=== PATIENT | male | born 1950 | race Caucasian/White ===

== ENCOUNTER 2016-05-30 05:56 | Outpatient (CLI) | payer BC ==
[~2016-05-30] VITALS: Ht 167.6 cm; Wt 90.7 kg
[2016-06-06] MEDS ORDERED: HYDR-3812 PO (13:24)
== END 2016-05-30 14:51 ==
LOC: PREOP 05:56
PROVIDERS: ATTEND Surgery
DX: Z01.818 Encounter for other preprocedural examination (principal); K63.9 Disease of intestine, unspecified

== ENCOUNTER 2016-06-04 06:26 | Inpatient (IN) | payer BC ==
[~2016-06-04] VITALS: Ht 167.6 cm; Wt 90.7 kg
[2016-06-04] VITALS (15 sets, daily range): BP systolic 116–152; BP diastolic 62–92
[~2016-06-04 06:26] MED LIST: BUP/EPI 0.25% 1:200,000 (MARCAINE) 30 ML VIAL ONE; HEParin (CENTRAL IV FLUSH) 500 UNIT/5 ML SYR ONE
--- OUTSIDE RECORDS SUMMARY | 2016-06-04 06:30 | XMS REPORT | Continuity of Care Document ---
Author Author [facility] Organization [facility] Address Unknown Phone Unavailable Support Name Relationship Address Phone YENI GUERRERO MD Caregiver #1 [facility] [place] [address] Insurance Providers Payer Name Policy Number Subscriber Name Relationship Yayo Angulo [facility] [id number] Lang Lei 18 Self / Same As Patient Advance Directives Directive Response Recorded Date/Time Advance Directives No 05/30/16 2:40pm Health Care Power of Athletic Agent No 05/30/16 2:40pm Resuscitation Status Full Code 05/30/16 2:40pm Problems No problem information available. Medications No medication information available. Social History Social History Problem Response Recorded Date/Time Alcohol Use Denies Use 05/30/2016 2:42pm Recreational Drug Use No 05/30/2016 2:42pm Recent Foreign Travel No 05/30/2016 2:39pm Recent Infectious Disease Exposure No 05/30/2016 2:39pm Sexually Transmitted Disease No 05/30/2016 2:42pm HIV/AIDS No 05/30/2016 2:42pm Smoking Status Never a Smoker 05/30/2016 2:41pm Recent Hopitalizations No 05/30/2016 2:42pm Sexually Transmitted Disease No 05/30/2016 2:42pm Query Response Start Date Stop Date Smoking Status Never a Smoker Hospital Discharge Instructions No hospital discharge instructions. Plan of Care Discharge Date 05/30/16 2:51pm Prescriptions See Medication Section Functional Status No functional status results. Allergies, Adverse Reactions, Alerts No known allergies. Immunizations No immunization records. Vital Signs Acute Vital Signs Vital Response Date/Time Height (Feet) 5 feet 05/30/2016 2:36pm Height (Inches) 6.00 inches 05/30/2016 2:36pm Height (Calculated Centimeters) 167.855443 cm 05/30/2016 2:36pm Weight (Pounds) 200 pounds 05/30/2016 2:36pm Weight (Ounces) 0.0 oz 05/30/2016 2:36pm Weight (Calculated Grams) 12900.48 gm 05/30/2016 2:36pm Weight (Calculated Kilograms) 90.115913 kilograms 05/30/2016 2:36pm Calculated BMI 32.3 05/30/2016 2:36pm Results No known relevant diagnostic tests, laboratory data and/or discharge summary. Procedures No known history of procedures. Encounters Encounter Location Arrival/Admit Date Discharge/Depart Date Attending Provider Departed Clinic [facility] 05/30/16 5:56am 05/30/16 2: 51pm YENI GUERRERO MD
--- OUTSIDE RECORDS SUMMARY | 2016-06-04 06:31 | XMS REPORT | Continuity of Care Document ---
Author Author [facility] Organization [facility] Address Unknown Phone Unavailable Support Name Relationship Address Phone YENI GUERRERO MD Caregiver #1 [facility] [place] [place] [address] Insurance Providers Payer Name Policy Number Subscriber Name Relationship Yayo Angulo [facility] [id number] Lang Lei 18 Self / Same As Patient Advance Directives Directive Response Recorded Date/Time Advance Directives No 05/30/16 2:40pm Health Care Power of Glass Inspector No 05/30/16 2:40pm Resuscitation Status Full Code [...] 6.00 inches 05/30/2016 2:36pm Height (Calculated Centimeters) 167.877790 cm 05/30/2016 2:36pm Weight (Pounds) 200 pounds 05/30/2016 2:36pm Weight (Ounces) 0.0 oz 05/30/2016 2:36pm Weight (Calculated Grams) 54126.48 gm 05/30/2016 2:36pm Weight (Calculated Kilograms) 90.027356 kilograms 05/30/2016 2:36pm Calculated BMI 32.3 05/30/2016 2:36pm Results No known relevant diagnostic tests, laboratory data and/or discharge summary. Procedures No known history of procedures. Encounters Encounter Location Arrival/Admit Date Discharge/Depart Date Attending Provider Departed Clinic [facility] 05/30/16 5:56am 05/30/16 2: 51pm YENI GUERRERO MD
[2016-06-04] MEDS ORDERED: metroNIDAZOLE 500 MG/100 ML IVPB (PRE-MIX) IV ONE (06:45)
[2016-06-04] MEDS ORDERED: ceFAZolin 2GM/50 ML DEXTROSE (PREMIX) IV ONE (06:45)
[2016-06-04] MEDS ORDERED: SEVOFLURANE (ULTANE) 15 ML INHAL SOLN ONE (06:46)
[2016-06-04] MEDS ORDERED: ONDANSETRON 4 MG/2 ML (SDV) Z0FRAN ONE (06:46)
[2016-06-04] MEDS ORDERED: LACTATED RINGERS 1,000 ML IV ONE ×3 (06:46→11:37)
[2016-06-04] MEDS ORDERED: ROCURONIUM 50 MG/5 ML (ZEMURON) VIAL IV ONE ×3 (06:46→10:21)
[2016-06-04] MEDS ORDERED: LACTATED RINGERS 1,000 ML IV PRN ×2 (06:46→11:53)
[2016-06-04] MEDS ORDERED: proPOfol 200 MG/20 ML (DIPRIVAN) VIAL IV ONE (06:46)
[2016-06-04] MEDS ORDERED: LIDOCAINE PF 2% 10 ML (XYLOCAINE) AMP ONE (06:46)
[2016-06-04] MEDS ORDERED: MIDAZOLAM 2 MG/2 ML (VERSED) VIAL ONE (06:46)
[2016-06-04] MEDS ORDERED: fentaNYL INJECTION 250 MCG/5 ML AMP ONE (06:46)
[2016-06-04 06:56] LABS: MEAN PLATELET VOLUME 9.5 FL (7.4-10.4); RED BLOOD COUNT 5.29 10^6/uL (4.35-5.85); WHITE BLOOD COUNT 9.1 10^3/uL (4.3-11.0)
--- OUTSIDE RECORDS SUMMARY | 2016-06-04 07:05 | XMS REPORT | Continuity of Care Document ---
Author Author [facility] Organization [facility] Address Unknown Phone Unavailable Support Name Relationship Address Phone YENI GUERRERO MD Caregiver #[address] [facility] [place] [address] Insurance Providers Payer Name Policy Number Subscriber Name Relationship Yayo Angulo [facility] [id number] Lang Lei 18 Self / Same As Patient Advance Directives Directive Response Recorded Date/Time Advance Directives No 05/30/16 2:40pm Health Care Power of Mortgage Loan Reviewer No 05/30/16 2:40pm Resuscitation Status Full Code [...] 6.00 inches 05/30/2016 2:36pm Height (Calculated Centimeters) 167.532822 cm 05/30/2016 2:36pm Weight (Pounds) 200 pounds 05/30/2016 2:36pm Weight (Ounces) 0.0 oz 05/30/2016 2:36pm Weight (Calculated Grams) 89364.48 gm 05/30/2016 2:36pm Weight (Calculated Kilograms) 90.937004 kilograms 05/30/2016 2:36pm Calculated BMI 32.3 05/30/2016 2:36pm Results No known relevant diagnostic tests, laboratory data and/or discharge summary. Procedures No known history of procedures. Encounters Encounter Location Arrival/Admit Date Discharge/Depart Date Attending Provider Departed Clinic [facility] 05/30/16 5:56am 05/30/16 2: 51pm YENI GUERRERO MD
[2016-06-04] MEDS: LACTATED RINGERS 1,000 ML IV PRN ×4 (07:08→18:31)
[2016-06-04 07:14] LABS: ALANINE AMINOTRANSFERASE 25 U/L (0-55); ALBUMIN 4.6 G/DL (3.2-4.5); ANION GAP 11 MMOL/L (5-14); ASPARTATE AMINO TRANSFERASE 24 U/L (5-34); BILIRUBIN,TOTAL 0.6 MG/DL (0.1-1.0); BLOOD UREA NITROGEN 16 MG/DL (7-18); BUN/CREATININE RATIO 14; CALCIUM 9.8 MG/DL (8.5-10.1); CARBON DIOXIDE 22 MMOL/L (21-32); CHLORIDE 106 MMOL/L (98-107); CREATININE SERUM 1.16 MG/DL (0.60-1.30); GFR ESTIMATED > 60; GLUCOSE 102 MG/DL (70-105); POTASSIUM 4.1 MMOL/L (3.6-5.0); SODIUM 139 MMOL/L (135-145)
[2016-06-04] MEDS ORDERED: LISI1TAB8 PO (07:22)
--- NOTE | 2016-06-04 07:24 | Progress Note-Pre Operative ---
Pre-Operative Progress Note H&P Reviewed The H&P was reviewed, patient examined and no changes noted. Date H&P Reviewed: Jun 04, 2016 Time H&P Reviewed: 07:23 Pre-Operative Diagnosis: Right colon mass YENI GUERRERO MD Jun 04, 2016 7:24 am
[2016-06-04] MEDS ORDERED: morphine INJ 10 MG/ML 1ML (SYR OR VIAL) ONE (11:06)
[2016-06-04] MEDS ORDERED: GLYCOPYRROLATE 0.2 MG/ML (ROBINUL) 2 ML VIAL ONE ×2 (11:25→11:45)
[2016-06-04] MEDS ORDERED: NEOSTIGMINE (BLOXIVERZ ) 1 MG/1ML 10 ML VIAL ONE (11:25)
[2016-06-04] MEDS ORDERED: ceFAZolin INJECTION 2,000 MG in NS (IVPB) 50 ML IV NR (11:29)
[2016-06-04] MEDS ORDERED: ceFAZolin 1,000 MG (ANCEF) VIAL IVP SCH (11:30)
[2016-06-04] MEDS ORDERED: fentaNYL INJECTION 100 MCG/2 ML AMP ONE (11:36)
--- NOTE | 2016-06-04 11:50 | Progress Note-Post Operative ---
Post-Operative Progess Note Pre-Operative Diagnosis Right colon mass Post-Operative Diagnosis SAME Post-Op Procedure Note Date of Procedure: Jun 04, 2016 Name of Procedure: Central line placement Robotic assisted right colon resection with intracorporeal anastomosis Estimated blood loss (mL): 50 mL Specimen(s) collected right colon YENI GUERRERO MD Jun 04, 2016 11:50 am
[2016-06-04] MEDS ORDERED: meTOprolol 5 MG/5 ML (LOPRESSOR) VIAL IV PRN (12:00)
[2016-06-04] MEDS ORDERED: ONDANSETRON 4 MG/2 ML (SDV) Z0FRAN IVP PRN ×2 (12:00→12:15)
[2016-06-04] MEDS ORDERED: HYDROmorphone (DILAUDID) 2 MG/ML VIAL IVP PRN (12:15)
[2016-06-04] MEDS ORDERED: MEPERIDINE (DEMEROL) INJ 50 MG/ML IVP PRN (12:15)
--- NOTE | 2016-06-04 12:24 | OPERATIVE REPORT ---
PROCEDURE PHYSICIAN: YENI GUERRERO DATE OF PROCEDURE: 06/04/2016 PREOPERATIVE DIAGNOSIS: Right colon mass. POSTOPERATIVE DIAGNOSIS: Right colon mass. OPERATION: 1. Central venous catheter placement. 2. Robotic assisted right colon resection with intracorporeal anastomosis. SURGEON: Case. ANESTHESIA: General anesthesia. BLOOD LOSS: 50 mL. FLUIDS: 2 liters of crystalloids. TYPE OF WOUND: Type III (contaminant wound). INDICATION FOR THE PROCEDURE: This gentleman, with a family history of colon cancer, was found to have a sessile lesion along the right colon, just distal to the cecum, requiring formal resection. He was offered minimally invasive technique with robotic assistance. Placing a central venous catheter to facilitate invasive hemodynamic monitoring and total parenteral nutrition, should his recovery be delayed, was discussed with him. Informed consent was obtained. DESCRIPTION OF PROCEDURE: He underwent mechanical bowel preparation including oral antibiotics the day before surgery. He was placed supine on the operating table and general anesthesia induced using an endotracheal tube. 2 grams of Ancef and 500 mg of Flagyl were administered intravenously as prophylaxis against wound infection. Sequential compression devices were placed around his legs, to minimize the risk of venous thrombosis. 1. CENTRAL VENOUS CATHETER PLACEMENT: Left infraclavicular fossa was prepared and draped in the usual sterile manner. Subclavian vein was localized and a floppy guidewire introduced into the heart. Subcutaneous tract was gently dilated using a silastic sheath and a triple-lumen central venous catheter advanced using Seldinger. All the channels were aspirated and flushed with heparinized saline and the catheter was secured using a silk suture. A dressing was then applied. 2. ROBOTIC ASSISTED RIGHT HEMICOLECTOMY WITH INTRACORPOREAL ANASTOMOSIS. Abdomen was prepared and draped in the usual sterile manner. A Benjamin catheter was placed to monitor urine output during the perioperative period. Pneumoperitoneum was established using a Veress needle introduced inferolateral to the umbilicus. Intra-abdominal pressure was maintained at 15 mmHg using carbon dioxide insufflation. A 12 mm trocar was placed and anatomy visualized using the 3 dimensional, high definition laparoscope associated with da James system. Ainsley ink used to jordy the lesion along the right colon was identified. Under direct view, I placed a 12 mm trocar over the left upper quadrant to facilitate using the robotic stapler followed by an 8 mm cannula over the left subcostal margin. Another 8 mm cannula was placed over the right lower quadrant and the patient was turned in slight Trendelenburg position with the right side tilted up. The robotic system was then docked. Right colon was held up and the ileocolic pedicle controlled using the vessel sealing device. Dissection was then continued in a medial to lateral fashion using the vessel sealing device. Duodenum was swept down and kept out of harm's way. The terminal ileum was then mobilized using the vessel sealer and transected using the robotic 3.5 mm stapler. We then turned our attention to the transverse colon. Omentum was using the vessel sealing device, mobilization being continued around the hepatic flexure along the para-colic gutter. The right branch of the middle colic artery was controlled using the vessel sealing device. Mid transverse colon was then transected using the robotic stapler. An anastomosis between the terminal ileum and the transverse colon was made in an isoperistaltic manner using the robotic stapling device. The common enterotomy was closed using a continuous layer of 2-0 V-Loc sutures followed by a second layer of 2-0 silk as a Lambert suture. Both ends of the bowel had excellent blood supply and there was no tension. The specimen was then removed using a 5 cm Pfannenstiel incision. The wound protecting Robin device was used to prevent contamination of the skin. Peritoneum over this incision was then closed using 3-0 Vicryl and the fascia using number 2 Prolene. Subcutaneous tissue was approximated using 3-0 Vicryl and skin using 4-0 Vicryl, in a subcuticular fashion. Skin incisions were closed using 4-0 Vicryl, in a subcuticular fashion. 0.25% Marcaine with epinephrine was infiltrated along the incisions, both preemptively and at the conclusion of the operation. He tolerated the procedure well, was extubated in the operating room and taken to the recovery room in stable condition. [place], sponges, and instruments were correct at the end of the operation. Job ID: [id number] Dictated Date: 06/04/2016 11:48:20 Button Riveter Date: 06/04/2016 12:06:47 / marino BOLTON
[2016-06-04] MEDS: morphine INJ 10 MG/ML 1ML (SYR OR VIAL) IVP PRN ×2 (12:28→12:34)
--- NOTE | 2016-06-04 13:18 | Diagnostic Imaging Report ---
INDICATION: Central line placement. FINDINGS: A portable view of the chest demonstrates cardiomegaly with tortuosity of the aorta. The left subclavian catheter has its tip in the SVC. The vascularity is slightly increased. No pleural effusions are present. IMPRESSION: 1. The central venous catheter is in good position. 2. Cardiomegaly is present with mild congestion. Dictated by: Dictated on workstation # [id number]
[2016-06-04] MEDS: metroNIDAZOLE 500MG/100ML IVPB 100 ML IV SCH ×2 (14:23→22:21)
[2016-06-04] MEDS ORDERED: ASPI-983 PO (14:50)
[2016-06-04] MEDS: fentaNYL INJECTION 100 MCG/2 ML AMP IV PRN (15:43)
[2016-06-04] MEDS: ceFAZolin INJECTION 1,000 MG in NORMAL SALINE (BAXTER MINI) 50 ML IV SCH (18:38)
[2016-06-05] VITALS (13 sets, daily range): BP systolic 114–143; BP diastolic 63–78
[2016-06-05] MEDS: fentaNYL INJECTION 100 MCG/2 ML AMP IV PRN ×5 (02:15→18:50)
[2016-06-05] MEDS: ceFAZolin INJECTION 1,000 MG in NORMAL SALINE (BAXTER MINI) 50 ML IV SCH (02:15)
[2016-06-05 04:49] LABS: BASOPHILS % (AUTO) 0 % (0-10); EOSINOPHILS % (AUTO) 0 % (0-10); LYMPHOCYTES % (AUTO) 8 % (12-44); MEAN CORPUSCULAR HEMOGLOBIN 30 PG (25-34); MEAN CORPUSCULAR HGB CONC 33 G/DL (32-36); MEAN CORPUSCULAR VOLUME 91 FL (80-99); MEAN PLATELET VOLUME 9.3 FL (7.4-10.4); MONOCYTES # (AUTO) 1.2 X 10^3 (0.0-1.0); MONOCYTES % (AUTO) 11 % (0-12); NEUTROPHILS # (AUTO) 9.5 X 10^3 (1.8-7.8); NEUTROPHILS % (AUTO) 81 % (42-75); PLATELET COUNT 184 10^3/uL (130-400); RED BLOOD COUNT 4.41 10^6/uL (4.35-5.85); RED CELL DISTRIBUTION WIDTH 13.9 % (10.0-14.5); WHITE BLOOD COUNT 11.8 10^3/uL (4.3-11.0)
[2016-06-05 05:14] LABS: ANION GAP 9 MMOL/L (5-14); BLOOD UREA NITROGEN 15 MG/DL (7-18); BUN/CREATININE RATIO 13; CALCIUM 8.8 MG/DL (8.5-10.1); CARBON DIOXIDE 24 MMOL/L (21-32); CHLORIDE 105 MMOL/L (98-107); CREATININE SERUM 1.12 MG/DL (0.60-1.30); GFR ESTIMATED > 60; GLUCOSE 108 MG/DL (70-105); MAGNESIUM 2.3 MG/DL (1.8-2.4); PHOSPHORUS 3.2 MG/DL (2.3-4.7); POTASSIUM 4.1 MMOL/L (3.6-5.0); SODIUM 138 MMOL/L (135-145)
[2016-06-05] MEDS: POTASSIUM CL 10MEQ/50ML IVPB 50 ML IV SCH (05:57)
[2016-06-05] MEDS: KCL 20 MEQ TAB (K-DUR) PO SCH (05:58)
[2016-06-05] MEDS: MAGNESIUM 1 GM/100 ML IVPB 100 ML IV SCH (05:58)
[2016-06-05] MEDS: lisINopril 20 MG (ZESTRIL) TAB PO SCH (07:55)
[2016-06-05] MEDS ORDERED: KETOROLAC 30 MG/ML VIAL IVP NR (08:15)
--- NOTE | 2016-06-05 08:40 | Diagnostic Imaging Report ---
INDICATION: Dyspnea. DISCUSSION: Single portable upright view of the chest was obtained, comparison 06/04/2016. Discoid atelectasis is now noted within the lingula. Cardiomegaly is again noted. Improved aeration of the bilateral lung bases with mild residual subsegmental atelectasis. No nithin heart failure. Left subclavian catheter with tip in the proximal SVC is stable. No pneumothorax. No pleural fluid. Mild elevation of the right hemidiaphragm is again noted. IMPRESSION: 1. Cardiomegaly without nithin failure. Dictated by: Dictated on workstation # [id number]
[2016-06-05] MEDS ORDERED: CATHETER FLUSH 10 ML SYR IV PRN (08:45)
[2016-06-05] MEDS: FLU TRIvalent (5 YOA+) 2016-17 (AFLURIA) 0.5 ML IM ONE ×2 (11:02→11:06)
--- NOTE | 2016-06-05 12:31 | Anesthesia-General Post-Op ---
General Patient Condition Mental Status/LOC: Same as Preop Cardiovascular: Satisfactory Nausea/Vomiting: Absent Respiratory: Satisfactory Pain: Controlled Complications: Absent Post Op Complications Complications None Follow Up Care/Instructions Patient Instructions None needed. Anesthesia/Patient Condition Patient Condition Patient is doing well, no complaints, stable vital signs, no apparent adverse anesthesia problems. JANIE CUELLO DO Jun 05, 2016 12:31
--- NOTE | 2016-06-05 14:00 | Progress Note-Standard ---
Standard Progress Note Progress Notes/Assess & Plan Progress/Assessment & Plan 06/05/16: Doing well.To floor Final Diagnosis R colon mass YENI GUERRERO MD Jun 05, 2016 2:00 pm
[2016-06-05] MEDS: ENOXAPARIN 40 MG/0.4 ML (LOVENOX) SYR SC SCH (14:10)
[2016-06-05] MEDS: LACTATED RINGERS 1,000 ML IV PRN (15:14)
[2016-06-05] MEDS: HYDROcodone/APAP 5 MG/325 MG (LORTAB) TAB PO PRN (21:05)
[2016-06-06] VITALS: BP 122/58
[2016-06-06] MEDS: HYDROcodone/APAP 5 MG/325 MG (LORTAB) TAB PO PRN ×3 (01:24→16:34)
[2016-06-06 04:00] VITALS: BP 118/62
[2016-06-06 05:07] LABS: BASOPHILS % (AUTO) 0 % (0-10); EOSINOPHILS # (AUTO) 0.1 10^3/uL (0.0-0.3); EOSINOPHILS % (AUTO) 1 % (0-10); LYMPHOCYTES # (AUTO) 1.6 X 10^3 (1.0-4.0); LYMPHOCYTES % (AUTO) 18 % (12-44); MEAN CORPUSCULAR HEMOGLOBIN 30 PG (25-34); MEAN CORPUSCULAR HGB CONC 33 G/DL (32-36); MEAN CORPUSCULAR VOLUME 92 FL (80-99); MEAN PLATELET VOLUME 9.5 FL (7.4-10.4); MONOCYTES % (AUTO) 11 % (0-12); NEUTROPHILS # (AUTO) 6.3 X 10^3 (1.8-7.8); NEUTROPHILS % (AUTO) 70 % (42-75); PLATELET COUNT 168 10^3/uL (130-400)
[2016-06-06 05:40] LABS: ANION GAP 9 MMOL/L (5-14); BLOOD UREA NITROGEN 13 MG/DL (7-18); BUN/CREATININE RATIO 13; CALCIUM 8.7 MG/DL (8.5-10.1); CARBON DIOXIDE 25 MMOL/L (21-32); CHLORIDE 105 MMOL/L (98-107); CREATININE SERUM 0.98 MG/DL (0.60-1.30); GFR ESTIMATED > 60; GLUCOSE 90 MG/DL (70-105); MAGNESIUM 2.1 MG/DL (1.8-2.4); PHOSPHORUS 2.3 MG/DL (2.3-4.7); POTASSIUM 3.8 MMOL/L (3.6-5.0); SODIUM 139 MMOL/L (135-145)
[2016-06-06] MEDS: POTASSIUM CL 10MEQ/50ML IVPB 50 ML IV SCH (06:00)
[2016-06-06] MEDS: MAGNESIUM 1 GM/100 ML IVPB 100 ML IV SCH (06:00)
[2016-06-06] MEDS: KCL 20 MEQ TAB (K-DUR) PO SCH (06:00)
[2016-06-06 07:00] VITALS: BP 135/77
[2016-06-06] MEDS: lisINopril 20 MG (ZESTRIL) TAB PO SCH (08:21)
--- NOTE | 2016-06-06 08:31 | Diagnostic Imaging Report ---
INDICATION: Colon mass. Portable chest at 05:01 a.m. FINDINGS: Left subclavian central line tip projects over the SVC. There is some discoid atelectasis at the left lung base. Lungs are otherwise clear. Heart size and pulmonary vascularity are normal. IMPRESSION: Stable chest with minimal residual left basilar discoid atelectasis. Dictated by: Dictated on workstation # [id number]
--- NOTE | 2016-06-06 12:28 | Progress Note-Standard ---
Standard Progress Note Progress Notes/Assess & Plan Progress/Assessment & Plan 06/05/16: Doing well.To floor 06/06/16: Seen earlier. Has passed flatus and had BMS. Incisions dry. 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
[2016-06-06] MEDS: ENOXAPARIN 40 MG/0.4 ML (LOVENOX) SYR SC SCH (12:39)
[2016-06-06 13:00] VITALS: BP 154/79
[2016-06-06] MEDS ORDERED: HYDR-3812 PO (13:24)
--- NOTE | 2016-06-06 13:25 | Discharge Inst-Simple/Standard ---
Discharge Inst-Standard Discharge Medications New, Converted or Re-Newed RX: RX on Chart Patient Instructions/Follow Up Plan of Care/Instructions/FU: pL REMOVE THE CENTRAL LINE.F/U IN 2 WEEKS Activity as Tolerated: Yes Discharge Diet: No Restrictions YENI GUERRERO MD Jun 06, 2016 1:25 pm
--- NOTE | 2016-06-07 07:24 | DISCHARGE SUMMARY ---
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 OPERATION: Robotic assisted right colon resection with intracorporeal anastomosis on 06/04/2016. This gentleman was found to have a large sessile lesion of the right colon requiring segmental resection. He underwent minimally invasive resection using robotic assistance and has made a satisfactory recovery. At the time of discharge, he is ambulating independently and his incisional pain is controlled with oral medications. He has resumed normal bowel function and is tolerating a regular diet. He will be followed up in my office in 2 weeks. I have instructed him to contact me, should there be any concerns in the meantime. Job ID: [id number] Dictated Date: 06/06/2016 13:26:53 Telephone Messenger Date: 06/07/2016 07:20:55/karen BOLTON
== END 2016-06-06 17:15 | disposition home or self-care (01) | DRG 331 ==
LOC: SURGICAL 06:26 → SDC 06:27 → SURG 06:27 → EDSTATUS 07:30 → ICU 13:05 → 4TH 06-05 08:58
PROVIDERS: ADMIT Surgery; ATTEND Surgery
PROC: 0DTF4ZZ Resection of Right Large Intestine, Percutaneous Endoscopic Approach (ICD-10-PCS; principal; 2016-06-04 07:29)
PROC: 8E0W4CZ Robotic Assisted Procedure of Trunk Region, Percutaneous Endoscopic Approach (ICD-10-PCS; 2016-06-04 07:29)
DX: D12.2 Benign neoplasm of ascending colon (principal); I10 Essential (primary) hypertension; Z80.0 Family history of malignant neoplasm of digestive organs
CPT/HCPCS: 36415; 71010; 80048; 80053; 83735; 84100; 85025; 85027; 86850; 86900; 86901; 87081; 94664; 94760

== ENCOUNTER → 2021-03-09 | Outpatient (CLI) | payer MEDICARE, OTHER ==
[~2021-03-09] MED LIST changes: +ACHD5005 PO; +ASPI-1238 PO; -BUP/EPI 0.25% 1:200,000 (MARCAINE) 30 ML VIAL ONE; -HEParin (CENTRAL IV FLUSH) 500 UNIT/5 ML SYR ONE; +LISI1TAB46 PO
== END ==
LOC: ORTHO 10:00
PROVIDERS: ATTEND Orthopaedic Surgery
DX: S83.242A Other tear of medial meniscus, current injury, left knee, initial encounter (principal); M17.12 Unilateral primary osteoarthritis, left knee; X58.XXXA Exposure to other specified factors, initial encounter
CPT/HCPCS: 99202

== ENCOUNTER → 2021-05-25 | Outpatient (CLI) | payer MEDICARE, OTHER | LOC: ORTHO 09:50 | PROVIDERS: ATTEND Orthopaedic Surgery | DX: M17.12 Unilateral primary osteoarthritis, left knee (principal) | CPT/HCPCS: 20610 ==

== ENCOUNTER → 2022-01-19 | Outpatient (CLI) | payer MEDICARE, OTHER | LOC: ORTHO 16:46 | PROVIDERS: ATTEND Orthopaedic Surgery | DX: M17.12 Unilateral primary osteoarthritis, left knee (principal) ==

== ENCOUNTER → 2022-01-23 | Outpatient (CLI) | payer MEDICARE, OTHER | LOC: ORTHO 17:12 | PROVIDERS: ATTEND Orthopaedic Surgery | DX: M17.12 Unilateral primary osteoarthritis, left knee (principal) | CPT/HCPCS: 20610 ==

== ENCOUNTER → 2022-08-22 | Outpatient (CLI) | payer MEDICARE, OTHER ==
--- NOTE | 2022-08-22 09:39 | Diagnostic Imaging Report ---
INDICATION: Right knee pain COMPARISON: None available. TECHNIQUE: Four radiographs of the right knee dated 08/22/2022. FINDINGS: No acute fracture or dislocation. No destructive osseous process. Moderate medial joint space narrowing and mild lateral joint space narrowing. Mild tricompartmental osteophytosis. The tibia is slightly laterally positioned in relationship to the distal femur. Narrowing of the lateral patellofemoral joint space. Small knee joint effusion. No suspicious radiopaque foreign body. IMPRESSION: No acute osseous normality with moderate degenerative changes and a small knee joint effusion present. Dictated by: Dictated on workstation # [id number]
== END ==
LOC: ORTHO 08:09
PROVIDERS: ATTEND Orthopaedic Surgery
DX: M17.11 Unilateral primary osteoarthritis, right knee (principal)
CPT/HCPCS: 73564